=== PATIENT | female | born 1970 | race Caucasian/White ===

== ENCOUNTER 2017-07-14 20:48 | Emergency (ER) | payer BC, OTHER ==
[~2017-07-14] VITALS: Ht 162.6 cm; Wt 75.0 kg
[2017-07-14 20:53] VITALS: Ht 162.6 cm; Wt 75.0 kg
--- NOTE | 2017-07-14 22:27 | ERD ---
ER Documentation Chief Complaint Chief Complaint pelvic pain & bleeding since may;per pt PMD said might have fibroids HPI The patient is a 47-year-old female, presenting to the ER because of chronic pelvic pain and intermittent spotting since June 26, 2017. She saw her gas welding equipment mechanic on June 26, 2017 and already had a pelvic ultrasound. She is going to see her gas welding equipment mechanic tomorrow to go over the results of the ultrasound She is in the ER requesting for pain medication. She denies fever, chills, syncope, near syncope, weakness, neck pain, chest pain or dyspnea, abdominal pain, vomiting, dysuria, diarrhea. She does not smoke or drink Past medical history: Hypothyroidism Past surgical history: Tubal ligation ROS All systems reviewed and are negative except as per history of present illness. Medications Home Meds Active Scripts Hydrocodone/Acetaminophen (Maybee 5-325 Tablet) 1 Each Tablet, 1 TAB PO Q6H Y for PAIN, #7 TAB Prov:TAI BRIGGS MD 07/14/17 Ibuprofen* (Motrin*) 600 Mg Tab, 600 MG PO Q6, #30 TAB Prov:TAI BRIGGS MD 07/14/17 Allergies Allergies: Coded Allergies: No Known Allergy (Unverified , 07/14/17) Physical Exam Vitals Vital Signs Date Time Temp Pulse Resp B/P Pulse Ox O2 Delivery O2 Flow Rate FiO2 07/14/17 20:53 96.7 70 20 162/90 99 Physical Exam Const: No acute distress. Head: Atraumatic. Eyes: Normal Conjunctiva. ENT: Normal External Ears, Nose and Mouth. Neck: Full range of motion. No meningismus. Resp: Clear to auscultation bilaterally. Cardio: Regular rate and rhythm. Abd: Soft, non distended, normal bowel sounds, non tender. Skin: No petechiae or rashes. Back: No midline or flank tenderness. Ext: No cyanosis, or edema. Neur: Awake and alert. No focal deficit Psych: Normal Mood and Affect. Results 24 hrs Current Medications Medications (Trade) Dose Ordered Sig/Mauri Route PRN Reason Start Time Stop Time Status Last Admin Dose Admin Acetaminophen/ Hydrocodone Bitart (Maybee (5/325)) 1 tab ONCE ONCE PO 07/14/17 23:00 07/14/17 23:01 Ondansetron HCl (Zofran Odt) 4 mg ONCE STAT ODT 07/14/17 22:34 07/14/17 22:36 DC Procedures/MDM MEDICAL MAKING DECISION: The patient is a 47-year-old female, presenting to the ER requesting for pain medication for her pelvic pain. She already has some workup done by her gas welding equipment mechanic and will see the gas welding equipment mechanic in the morning. He was treated with Maybee 5 mg p.o. and Zofran ODT for nausea with good response. The differential diagnoses considered include but are not limited to PID, ovarian cyst, endometriosis, fibroids, appendicitis. Departure Diagnosis: Primary Impression: Pelvic pain Condition: Good Comments She was discharged with Maybee and Zofran The patient's blood pressure was elevated (>120/80) but appears stable without evidence of hypertension emergency or urgency. The patient was counseled about the risks of hypertension and urged to pursue outpatient monitoring and therapy within a week with their primary care physician. I discussed the findings with the patient. I advised the patient to follow-up with the primary physician in about 1-2 days, sooner if needed and return if any concern. Disclaimer: Inadvertent spelling and grammatical errors are likely due to EHR/ dictation software use and do not reflect on the overall quality of patient care. Also, please note that the electronic time recorded on this note does not necessarily reflect the actual time of the patient encounter. TAI BRIGGS MD Jul 14, 2017 22:27
[2017-07-14] MEDS ORDERED: ONDANSETRON (ODT) 4 MG TAB ODT STA (22:34)
[2017-07-14] MEDS ORDERED: IBUP-1542 PO (22:36)
[2017-07-14] MEDS ORDERED: HYDR-906 PO (22:36)
[2017-07-14] MEDS ORDERED: HYDROCODONE/APAP (5/325) TAB PO ONE (23:00)
== END 2017-07-14 23:52 | disposition home or self-care (01) ==
LOC: FTE 20:48
DX: R10.2 Pelvic and perineal pain (principal); E03.9 Hypothyroidism, unspecified
CPT/HCPCS: 99283; Z7610